=== PATIENT | female | born 1965 | race African-American/Black ===

== ENCOUNTER 2019-06-11 07:41 | Inpatient (IN) | payer MEDICAID ==
[~2019-06-11] VITALS: Ht 162.6 cm; Wt 102.1 kg
[2019-06-11] MEDS ORDERED: METHYLPREDNISOLONE SOD SUCC 125 MG/2 ML VIAL IV STA (08:01)
[2019-06-11] MEDS ORDERED: ALBUTEROL (0.083%) 2.5MG/3ML NEB HHN STA ×2 (08:01→10:34)
[2019-06-11 09:22] LABS: BASOPHILS % 0.6 % (0.0-2.0); EOSINOPHILS % 8.8 % (0.0-5.0); HEMATOCRIT. 46.6 % (36.0-48.0); HEMOGLOBIN. 15.2 g/dL (12.0-16.0); LYMPHOCYTES % 27.8 % (20.0-50.0); MEAN CORPUSCULAR HEMOGLOBIN 27.5 pg (28.0-32.0); MEAN CORPUSCULAR VOLUME 84.7 fL (81.0-99.0); MEAN PLATELET VOLUME 8.9 fl (7.4-10.4); MONOCYTES % 10.9 % (2.0-8.0); NEUTROPHILS % 51.9 % (40.0-76.0); PLATELET 195 x1000/uL (130-400); RED CELL DISTRIBUTION WIDTH 16.7 % (11.6-14.6)
[2019-06-11 09:24] LABS: CHLORIDE 108 mEq/L (98-107)
[2019-06-11 09:28] LABS: ETHANOL BLOOD < 10 mg/dL
[2019-06-11 10:02] LABS: BG CARBOXYHEMOGLOBIN 10.5 % (0.5-1.5); BG DEOXYHEMOGLOBIN 7.3 % (0.0-5.0); BG FRACTION INSPIRED OXYGEN 35; BG HCO3 ACT 27.9 mmol/L (22.0-26.0); BG METHEMOGLOBIN 0.2 % (0.0-1.5); BG OXYGEN SATURATION 91.8 % (92.0-98.5); BG PCO2 52.7 mmHg (35.0-45.0); BG PH 7.341 (7.350-7.450); BG PO2 62.1 mmHg (75.0-100.0); BG SAMPLE SITE RIGHT RADIAL; BG TOTAL HEMOGLOBIN 15.9 g/dL (12.0-18.0); BG VENT MODE MASK - VENTI
[2019-06-11 10:23] LABS: *AMPHETAMINES SCREEN URINE NEGATIVE (NEGATIVE); *BARBITURATES SCREEN URINE NEGATIVE (NEGATIVE); *BENZODIAZEPINES SCREEN URINE NEGATIVE (NEGATIVE)
[2019-06-11 10:24] LABS: *COCAINE SCREEN URINE PRESUMTIVE POSITIVE (NEGATIVE); CANNABINOID URINE SCREEN NEGATIVE (NEGATIVE); METHADONE URINE SCREEN NEGATIVE (NEGATIVE); OPIATES URINE SCREEN NEGATIVE (NEGATIVE); PHENCYCLIDINE URINE SCREEN NEGATIVE (NEGATIVE)
[2019-06-11] MEDS ORDERED: IPRATROPIUM BROMIDE (0.02%) 0.5MG/2.5ML NEB HHN STA (10:34)
[2019-06-11] MEDS ORDERED: IPRATROPIUM/ALBUTEROL 0.5-3(2.5)MG/3ML NEB NEB PRN (11:15)
[2019-06-11] MEDS ORDERED: ZOLPIDEM TARTRATE 5MG TABLET PO PRN (11:15)
[2019-06-11] MEDS ORDERED: GUAIFENESIN 200MG/10ML SUGAR FREE UDC PO PRN (11:15)
[2019-06-11] MEDS ORDERED: LORAZEPAM 0.5MG TABLET PO PRN (11:15)
[2019-06-11] MEDS ORDERED: ACETAMINOPHEN 325MG TABLET PO PRN (11:15)
[2019-06-11] MEDS ORDERED: MAGNESIUM/ALUMINUM HYDROXIDE/SIMETHICONE 30ML UDC PO PRN (11:15)
[2019-06-11] MEDS ORDERED: ONDANSETRON HCL 4MG/2ML INJ IV PRN (11:15)
[2019-06-11] MEDS ORDERED: DOCUSATE SODIUM 100MG CAPSULE PO PRN (11:15)
[2019-06-11] MEDS ORDERED: KETOROLAC 15MG/ML VIAL IV PRN (11:15)
[2019-06-11] MEDS ORDERED: DIPHENHYDRAMINE 50MG/ML VIAL IV PRN (11:15)
[2019-06-11] MEDS ORDERED: CLONIDINE 0.1MG TABLET PO PRN (11:15)
[2019-06-11] MEDS ORDERED: NITROGLYCERIN 0.4MG TABLET SL SL PRN (11:15)
[2019-06-11] MEDS ORDERED: ENOXAPARIN 40MG/0.4ML SYR SUBCUT SCH (13:00)
[2019-06-11] MEDS: DILTIAZEM HCL 60MG TABLET PO SCH ×2 (13:03→18:12)
[2019-06-11] MEDS: METHYLPREDNISOLONE SOD SUCC 125 MG/2 ML VIAL IV SCH ×2 (13:03→22:05)
[2019-06-11] MEDS: GUAIFENESIN/DM 600MG/30MG ER TAB 12HR PO SCH ×2 (13:03→22:07)
[2019-06-11 13:08] VITALS: BP 137/91
[2019-06-11] MEDS: IPRATROPIUM/ALBUTEROL 0.5-3(2.5)MG/3ML NEB HHN SCH ×3 (13:16→21:34)
[2019-06-11 14:00] VITALS: BP 124/72
[2019-06-11] MEDS ORDERED: LEVOFLOXACIN 500MG PREMIX 100 ML IV SCH (15:00)
[2019-06-11 15:58] LABS: CREATINE KINASE 294 IU/L (26-192)
[2019-06-11 15:59] LABS: CREATINE KINASE MB FRACTION 9.6 ng/mL (0.5-3.6)
[2019-06-11 16:00] VITALS: BP 135/75
[2019-06-11] MEDS ORDERED: POTASSIUM CHLORIDE 20MEQ/PACKET PO NR (16:45)
[2019-06-11] MEDS ORDERED: DEXTROSE 50% WATER 50ML SYRINGE IV PRN (16:45)
[2019-06-11] MEDS: BLOOD SUGAR DIAGNOSTIC STRIP TEST SCH ×2 (16:50→21:00)
[2019-06-11] MEDS: INSULIN LISPRO 100 UNITS/ML SUBCUT SCH ×2 (17:20→22:04)
[2019-06-11 18:00] VITALS: BP 145/93
[2019-06-11] MEDS ORDERED: KCL 20MEQ/100ML PREMIX 100 ML IV NR (18:00)
[2019-06-11 20:00] VITALS: BP 158/95
[2019-06-11 22:00] VITALS: BP 152/78
[2019-06-11] MEDS: FAMOTIDINE 20MG TABLET PO SCH (22:05)
[2019-06-12] VITALS (7 sets, daily range): BP systolic 137–151; BP diastolic 63–87
[2019-06-12] MEDS: DILTIAZEM HCL 60MG TABLET PO SCH ×2 (00:16→06:41)
[2019-06-12 00:30] LABS: CREATINE KINASE 193 IU/L (26-192)
[2019-06-12 00:32] LABS: CREATINE KINASE MB FRACTION 5.7 ng/mL (0.5-3.6)
[2019-06-12] MEDS: IPRATROPIUM/ALBUTEROL 0.5-3(2.5)MG/3ML NEB HHN SCH ×4 (01:13→09:28)
[2019-06-12] MEDS: BLOOD SUGAR DIAGNOSTIC STRIP TEST SCH (06:24)
[2019-06-12] MEDS: METHYLPREDNISOLONE SOD SUCC 125 MG/2 ML VIAL IV SCH (06:40)
[2019-06-12] MEDS: INSULIN LISPRO 100 UNITS/ML SUBCUT SCH (06:42)
[2019-06-12] MEDS: FAMOTIDINE 20MG TABLET PO SCH (08:13)
[2019-06-12] MEDS: GUAIFENESIN/DM 600MG/30MG ER TAB 12HR PO SCH (08:13)
[2019-06-12] MEDS ORDERED: ASPIRIN 325MG EC TABLET PO SCH (09:00)
== END 2019-06-12 11:36 | disposition home or self-care (01) | DRG 140 ==
LOC: ER 07:41 → 3WST 10:34 → EDBEDREQ 10:39 → ENRESERV 10:46
PROVIDERS: ADMIT Internal Medicine; ATTEND Internal Medicine
PROC: 5A09357 Assistance with Respiratory Ventilation, Less than 24 Consecutive Hours, Continuous Positive Airway Pressure (ICD-10-PCS; principal; 2019-06-11)
PROC: 5A09357 Assistance with Respiratory Ventilation, Less than 24 Consecutive Hours, Continuous Positive Airway Pressure (ICD-10-PCS; 2019-06-12)
DX: J44.1 Chronic obstructive pulmonary disease with (acute) exacerbation (principal); J96.00 Acute respiratory failure, unspecified whether with hypoxia or hypercapnia; G92 Toxic encephalopathy; E44.0 Moderate protein-calorie malnutrition; E87.6 Hypokalemia; F14.10 Cocaine abuse, uncomplicated; E11.9 Type 2 diabetes mellitus without complications; E66.9 Obesity, unspecified; I10 Essential (primary) hypertension; Z71.51 Drug abuse counseling and surveillance of drug abuser; Z68.38 Body mass index [BMI] 38.0-38.9, adult
CPT/HCPCS: 36415; 36600; 71045; 80061; 80305; 80320; 82375; 82550; 82553; 82805; 82962; 83036; 83880; 84484; 93005; 93970; 94640; 94660; 96374; 99291; J1200; J1650; J1815; J1956; J2930; J3480; J7611; J7620; G0480